=== PATIENT | female | born 1960 | race Asian ===

== ENCOUNTER 2019-01-23 10:34 | Emergency (ER) | payer OTHER ==
[~2019-01-23] VITALS: Ht 157.5 cm; Wt 70.3 kg
[2019-01-23 11:15] VITALS: BP 155/82
--- NOTE | 2019-01-23 11:15 | NUR ---
ED Nurse Note: Patient came into ER with a request for a medication refill. Patient doesnt know what medication she needs to refill. Patient is AAOx3, and on room air. No signs of respiratory distress. Patient placed in gown and on cardiac monitors. IV placed and lab work sent to lab. patient states she is unable to urinate at this time.
--- NOTE | 2019-01-23 11:20 | NUR ---
ED Nurse Note: Xray is at bedside
--- NOTE | 2019-01-23 11:25 | NUR ---
ED Nurse Note: EKG done bedside
[2019-01-23 11:49] LABS: BASOPHILS % (AUTO) 0.7 % (0.0-2.0); EOSINOPHILS % (AUTO) 1.5 % (0.0-3.0); HEMATOCRIT 39.6 % (37.0-47.0); HEMOGLOBIN 13.6 G/DL (12.0-16.0); LYMPHOCYTES % (AUTO) 31.1 % (20.0-45.0); MEAN CORPUSCULAR VOLUME 84 FL (80-99); MONOCYTES % (AUTO) 5.1 % (1.0-10.0); NEUTROPHILS % (AUTO) 61.6 % (45.0-75.0); PLATELET COUNT 385 K/UL (150-450); RED BLOOD COUNT 4.73 M/UL (4.20-5.40); WHITE BLOOD COUNT 10.2 K/UL (4.8-10.8)
[2019-01-23 12:01] LABS: ANION GAP 7 mmol/L (5-15); BLOOD UREA NITROGEN 18 mg/dL (7-18); CALCIUM 9.8 MG/DL (8.5-10.1); CARBON DIOXIDE 26 MMOL/L (21-32); CHLORIDE 103 MMOL/L (98-107); CREATININE 0.8 MG/DL (0.55-1.30); POTASSIUM 3.7 MMOL/L (3.5-5.1); SODIUM 136 MMOL/L (136-145)
[2019-01-23 12:07] LABS: ALANINE AMINOTRANSFERASE 39 U/L (12-78); ALBUMIN 3.3 G/DL (3.4-5.0); ALBUMIN/GLOBULIN RATIO 0.7 (1.0-2.7); ALKALINE PHOSPHATASE 219 U/L (46-116); ASPARTATE AMINO TRANSFERASE 23 U/L (15-37); BILIRUBIN,TOTAL 0.3 MG/DL (0.2-1.0)
[2019-01-23 12:13] LABS: APPEARANCE,URINE CLEAR; BILIRUBIN, URINE NEGATIVE (NEGATIVE); GLUCOSE, URINE (UA) 4+ (NEGATIVE); KETONES,URINE NEGATIVE (NEGATIVE); LEUKOCYTE ESTERASE ,URINE 1+ (NEGATIVE); NITRITE,URINE NEGATIVE (NEGATIVE); PH,URINE 5 (4.5-8.0); PROTEIN,URINE 3+ (NEGATIVE); UROBILINOGEN,URINE NORMAL MG/DL (0.0-1.0)
[2019-01-23 12:14] LABS: COLOR,URINE YELLOW
[2019-01-23] MEDS ORDERED: OMEPRAZOLE20 M3 ORAL (12:36)
[2019-01-23] MEDS ORDERED: GLIPIZIDE5 MG ORAL (12:36)
[2019-01-23] MEDS ORDERED: GABAPENTIN300 MG ORAL (12:36)
[2019-01-23] MEDS ORDERED: TRAZODONE HCL150 MG ORAL (12:36)
--- NOTE | 2019-01-23 13:14 | Emergency Room Report ---
History of Present Illness General Chief Complaint: Altered Level of Consciousness Source: Patient Present Illness HPI Patient presents to the emergency department today with acute altered mental status. Patient has a history of psychiatric disorder and takes multiple medications. She came in here initially for medication refill but in fact she has not been sent in by her primary care physician for evaluation and possible admission given her worsening altered mental status. Review of patient's medications shows that most of her medications are empty. In addition patient has medications that do not belong to her including trazodone that belonged to a different patient. She denied any fever chest pain shortness of breath. No other complaints are noted. Patient seems a little confused. No other modifying factors. No other associated signs and symptoms. No other complaints were noted. Allergies: Coded Allergies: No Known Allergies (Unverified , 01/23/19) Patient History Past Medical History: DM, HTN, psych hx Past Surgical History: none Pertinent Family History: none Social History: Denies: smoking, alcohol use, drug use Reviewed Nursing Documentation: PMH: Agreed; PSxH: Agreed Nursing Documentation-PMH Past Medical History: No History, Except For Hx Hypertension: Yes Hx Diabetes: Yes Hx Gastrointestinal Problems: Yes - GERD History Of Psychiatric Problem: Yes - depression Review of Systems All Other Systems: negative except mentioned in HPI Physical Exam Vital Signs Date Time Temp Pulse Resp B/P (MAP) Pulse Ox O2 Delivery O2 Flow Rate FiO2 01/23/19 10:36 98.1 94 19 172/94 (120) 96 Room Air Sp02 EP Interpretation: reviewed, normal General Appearance: alert - But confused. Head: normocephalic, atraumatic Eyes: bilateral eye normal inspection ENT: normal ENT inspection, hearing grossly normal, normal voice Neck: normal inspection, full range of motion, supple, no bony tend Respiratory: normal inspection, lungs clear, normal breath sounds, no respiratory distress, no retraction, no wheezing Cardiovascular #1: regular rate, rhythm, no edema Gastrointestinal: normal inspection, normal bowel sounds, non tender, soft, no guarding, no hernia Genitourinary: no CVA tenderness Musculoskeletal: normal inspection, back normal, normal range of motion Neurologic: alert, responsive, speech normal Psychiatric: depressed affect, anxious, other - Appears confused. Skin: no rash Medical Decision Making Diagnostic Impression: Primary Impression: Altered level of consciousness ER Course Patient presents emergency department with acute altered mental status. Differential diagnosis include acute electrolyte abnormality, acute CVA, acute drug overdose, medication noncompliance this name a few. Given the severity of the patient's presentation I felt this is a highly complex patient. This patient required extensive workup. Patient's laboratory work-up was not impressive. However given patient's confusion presentation I was concerned about patient accidentally taking the wrong medications ordering appropriate doses. Given patient's confusion I felt the patient required [facility]. Patient laboratory work-up was not impressive vital signs are stable therefore patient can be transferred. Case was discussed with Sruthi Page at [facility]. Patient will be transferred there for further evaluation treatment per insurance request. Labs Test 01/23/19 11:30 01/23/19 12:05 White Blood Count 10.2 K/UL (4.8-10.8) Red Blood Count 4.73 M/UL (4.20-5.40) Hemoglobin 13.6 G/DL (12.0-16.0) Hematocrit 39.6 % (37.0-47.0) Mean Corpuscular Volume 84 FL (80-99) Mean Corpuscular Hemoglobin 28.8 PG (27.0-31.0) Mean Corpuscular Hemoglobin Concent 34.4 G/DL (32.0-36.0) Red Cell Distribution Width 12.0 % (11.6-14.8) Platelet Count 385 K/UL (150-450) Mean Platelet Volume 6.5 FL (6.5-10.1) Neutrophils (%) (Auto) 61.6 % (45.0-75.0) Lymphocytes (%) (Auto) 31.1 % (20.0-45.0) Monocytes (%) (Auto) 5.1 % (1.0-10.0) Eosinophils (%) (Auto) 1.5 % (0.0-3.0) Basophils (%) (Auto) 0.7 % (0.0-2.0) Sodium Level 136 MMOL/L (136-145) Potassium Level 3.7 MMOL/L (3.5-5.1) Chloride Level 103 MMOL/L (98-107) Carbon Dioxide Level 26 MMOL/L (21-32) Anion Gap 7 mmol/L (5-15) Blood Urea Nitrogen 18 mg/dL (7-18) Creatinine 0.8 MG/DL (0.55-1.30) Estimat Glomerular Filtration Rate > 60 mL/min (>60) Glucose Level 251 MG/DL (74-106) Calcium Level 9.8 MG/DL (8.5-10.1) Total Bilirubin 0.3 MG/DL (0.2-1.0) Aspartate Amino Transf (AST/SGOT) 23 U/L (15-37) Alanine Aminotransferase (ALT/SGPT) 39 U/L (12-78) Alkaline Phosphatase 219 U/L (46-116) Total Protein 7.9 G/DL (6.4-8.2) Albumin 3.3 G/DL (3.4-5.0) Globulin 4.6 g/dL Albumin/Globulin Ratio 0.7 (1.0-2.7) Urine Color Yellow Urine Appearance Clear Urine pH 5 (4.5-8.0) Urine Specific [place] 1.020 (1.005-1.035) Urine Protein 3+ (NEGATIVE) Urine Glucose (UA) 4+ (NEGATIVE) Urine Ketones Negative (NEGATIVE) Urine Blood Negative (NEGATIVE) Urine Nitrite Negative (NEGATIVE) Urine Bilirubin Negative (NEGATIVE) Urine Urobilinogen Normal MG/DL (0.0-1.0) Urine Leukocyte Esterase 1+ (NEGATIVE) Urine RBC 0-2 /HPF (0 - 2) Urine WBC 0-2 /HPF (0 - 2) Urine Squamous Epithelial Cells Few /LPF (NONE/OCC) Urine Bacteria Few /HPF (NONE) Urine Opiates Screen Negative (NEGATIVE) Urine Barbiturates Screen Negative (NEGATIVE) Phencyclidine (PCP) Screen Negative (NEGATIVE) Urine Amphetamines Screen Negative (NEGATIVE) Urine Benzodiazepines Screen Negative (NEGATIVE) Urine Cocaine Screen Negative (NEGATIVE) Urine Marijuana (THC) Screen Negative (NEGATIVE) Last Vital Signs Date Time Temp Pulse Resp B/P (MAP) Pulse Ox O2 Delivery O2 Flow Rate FiO2 01/23/19 11:15 98.1 86 19 155/82 96 Room Air Status: improved Disposition: XFER SHT-TRM HOSP Condition: Serious Referrals: NON PHYSICIAN (PCP) Joe Soto MD Jan 23, 2019 13:14
[2019-01-23 14:11] VITALS: BP 165/83
--- NOTE | 2019-01-23 14:15 | NUR ---
ED Nurse Note: Per ERMD Dr. Soto patient is able to have sandwich.
--- NOTE | 2019-01-23 15:00 | NUR ---
ED Nurse Note: Called [facility] and spoke to MUSTAPHA Bhatt and gave report. Patient is aox 3-4, and on room air. Patient being transported by [facility].
[2019-01-23 15:06] VITALS: BP 165/83
--- NOTE | 2019-01-25 08:26 | Diagnostic Imaging Report ---
Indication: Cough Technique: One view of the chest Comparison: none Findings: Lungs and pleural spaces are clear. Heart size is and upper limits normal. Impression: No acute process
== END 2019-01-23 15:00 | disposition short-term general hospital (02) ==
LOC: EMR 11:29
DX: R41.82 Altered mental status, unspecified (principal); I10 Essential (primary) hypertension; E11.9 Type 2 diabetes mellitus without complications; K21.9 Gastro-esophageal reflux disease without esophagitis; F32.9 Major depressive disorder, single episode, unspecified
CPT/HCPCS: 36415; 71045; 80053; 80307; 81003; 84484; 85025; 93005; Z7502; 99284